=== PATIENT | male | born 2000 | race Caucasian/White ===

== ENCOUNTER 2018-03-03 01:50 | Emergency (ER) | payer OTHER ==
[~2018-03-03] VITALS: Ht 170.2 cm; Wt 131.5 kg
[2018-03-03 01:50] VITALS: BP_SYST 143
[2018-03-03] MEDS ORDERED: PANTOPRAZOLE SODIUM 40 MG TAB PO ONE (02:00)
[2018-03-03] MEDS ORDERED: KETOROLAC TROMETHAMINE 60 MG/2 ML VIAL IM ONE (02:00)
[2018-03-03 02:44] VITALS: BP_SYST 140
== END 2018-03-03 02:44 | disposition home or self-care (01) ==
LOC: SED 01:50
DX: K21.9 Gastro-esophageal reflux disease without esophagitis (principal)
CPT/HCPCS: 71045; 93005; 96372; 99284; J1885

== ENCOUNTER 2018-09-03 03:48 | Inpatient (IN) | payer OTHER ==
[~2018-09-03] VITALS: Ht 170.2 cm; Wt 126.1 kg
[2018-09-03 03:56] VITALS: BP_SYST 143
[2018-09-03] MEDS ORDERED: NITROGLYCERIN 0.4 MG TAB.SUBL SL ONE (04:45)
[2018-09-03] MEDS ORDERED: ONDANSETRON HCL 4 MG/2 ML VIAL IVP ONE (04:45)
[2018-09-03] MEDS ORDERED: ASPIRIN 81 MG TAB.CHEW PO ONE (04:45)
[2018-09-03 05:34] LABS: BASOPHILS # (AUTO) 0.2 K/uL (0.0-0.2); BASOPHILS % (AUTO) 2.3 % (0.0-2.0); EOSINOPHILS # (AUTO) 0.1 K/uL (0.0-0.4); EOSINOPHILS % (AUTO) 1.6 % (0.0-4.0); HEMATOCRIT 49.1 % (36-54); HEMOGLOBIN 15.9 g/dL (14.0-18.0); LYMPHOCYTES # (AUTO) 2.6 K/uL (1.0-5.5); LYMPHOCYTES % (AUTO) 32.5 % (20.5-51.5); MEAN CORPUSCULAR HEMOGLOBIN 29 pg (27-31); MEAN CORPUSCULAR HGB CONC 32 % (32-36); MEAN CORPUSCULAR VOLUME 90 fL (79.0-98.0); MONOCYTES # (AUTO) 0.6 K/uL (0.0-1.0); MONOCYTES % (AUTO) 7.2 % (1.7-9.3); NEUTROPHILS # (AUTO) 4.6 K/uL (1.8-7.7); NEUTROPHILS % (AUTO) 56.4 % (40.0-70.0); PLATELET COUNT (AUTO) 225 K/uL (130-430); RED BLOOD CELL COUNT(AUTO) 5.47 MIL/uL (4.2-6.2); RED CELL DISTRIBUTION WIDTH 13.4 % (9.0-15.0); WHITE BLOOD COUNT (AUTO) 8.1 K/uL (4.5-11.0)
[2018-09-03 05:43] LABS: ANION GAP 11 (5-15); CALCIUM 9.4 mg/dL (8.4-11.0); CHLORIDE 102 mmol/L (98-107); CREATININE 0.81 mg/dL (0.55-1.30); GLUCOSE 112 mg/dL (70-99); POTASSIUM 3.2 mmol/L (3.5-5.1); SODIUM SERUM 140 mmol/L (136-145); UREA NITROGEN, BLOOD 9 mg/dL (8-21)
[2018-09-03 05:44] LABS: GFR AFRICAN AMERICAN 156 mL/min (>90)
[2018-09-03 05:52] LABS: ALANINE AMINOTRANSFERASE 29 U/L (12-78); ASPARTATE AMINOTRANSFERASE 17 U/L (10-37); TOTAL BILIRUBIN 0.4 mg/dL (0.0-1.0)
[2018-09-03 06:18] VITALS: BP_SYST 144
[2018-09-03 07:10] LABS: BILIRUBIN,URINE NEGATIVE (NEGATIVE); BLOOD, URINE NEGATIVE (NEGATIVE); CLARITY/URINE CLEAR (CLEAR); COLOR,URINE YELLOW (YELLOW); GLUCOSE,URINE NEGATIVE (NEGATIVE); KETONES,URINE NEGATIVE (NEGATIVE); LEUKOCYTE ESTERASE ,URINE TRACE (NEGATIVE); NITRITE, URINE NEGATIVE (NEGATIVE); PH,URINE 6.5 (5.0-8.0); PROTEIN URINE NEGATIVE (NEGATIVE); UROBILINOGEN,URINE 0.2 (0.2-1.0)
[2018-09-03 07:34] LABS: BARBITURATE, URINE NEGATIVE (NEG <=200); BENZODIAZEPINE, URINE NEGATIVE (NEG <=150); CANNABINOID, URINE NEGATIVE (NEG <=50); COCAINE, URINE NEGATIVE (NEG <=150); METHAMPHETAMINES SCREEN,URINE NEGATIVE (NEG <=500); OPIATE, URINE NEGATIVE (NEG <=100); PHENCYCLIDINE SCREEN,URINE NEGATIVE (NEG <=25); UR TRICYCLIC ANTIDEPRESSANTS NEGATIVE (NEG <=300); URINE AMPHETAMINE NEGATIVE (NEG <=500); URINE METHADONE NEGATIVE (NEG <=200); URINE OXYCODONE SCREEN NEGATIVE (NEG <=100); URINE PROPOXYPHENE SCREEN NEGATIVE (NEG <=300)
[2018-09-03 07:43] LABS: CHOLESTEROL 145 mg/dL (<200); HDL CHOLESTEROL 36 mg/dL (>45); LDL CHOLESTEROL 104 mg/dL (<100); TRIGLYCERIDES 108 mg/dL (30-150)
[2018-09-03 08:00] VITALS: BP_SYST 122
[2018-09-03] MEDS: FAMOTIDINE 20 MG TABLET PO SCH ×2 (08:05→20:49)
[2018-09-03 11:12] VITALS: BP_SYST 138
[2018-09-03] MEDS ORDERED: KETOROLAC TROMETHAMINE 15 MG VIAL IVP ONE (14:30)
[2018-09-03 15:36] VITALS: BP_SYST 148
[2018-09-03 20:03] VITALS: BP_SYST 135
[2018-09-03] MEDS ORDERED: FAMO-132 PO (21:20)
[2018-09-03] MEDS ORDERED: NAPR-688 PO (21:21)
== END 2018-09-03 22:20 | disposition home or self-care (01) | DRG 313 ==
LOC: SED 03:48 → STU 05:53
PROVIDERS: ADMIT Internal Medicine Hospice and Palliative Medicine; ATTEND Internal Medicine Hospice and Palliative Medicine
DX: R07.89 Other chest pain (principal)
CPT/HCPCS: 36415; 71045; 80053; 80061; 80307; 81003; 82550-TC; 82962; 83874; 84484; 85025; 93005; 96374; 99285; J1885; J2405

== ENCOUNTER 2019-07-12 17:09 | Emergency (ER) | payer OTHER ==
[~2019-07-12] VITALS: Ht 172.7 cm; Wt 127.0 kg
[~2019-07-12 17:09] MED LIST: FAMO-132 PO; NAPR-688 PO
[2019-07-12 17:10] VITALS: BP_SYST 161
--- NOTE | 2019-07-12 17:12 | NUR ---
Placed in room 1 . Placed on cardiac nurse specialist, blood pressure machine and pulse oximeter. To gown for exam. Side rails up. Report received from Jacey MOODY.
--- NOTE | 2019-07-12 17:20 | NUR ---
Pt reports have sharp CP. Pt does report a hx of anxiety. Pt is not in any distress and does not report any SOB. EKG done. Will continue to monitor.
[2019-07-12] MEDS ORDERED: ONDANSETRON 4 MG ODT TAB PO ONE (17:30)
--- NOTE | 2019-07-12 17:38 | NUR ---
pt is having labs drawn at the bedside.
[2019-07-12 17:50] LABS: BASOPHILS # (AUTO) 0.1 K/uL (0.0-0.2); BASOPHILS % (AUTO) 0.7 % (0.0-2.0); EOSINOPHILS % (AUTO) 0.3 % (0.0-4.0); HEMATOCRIT 48.2 % (36-54); HEMOGLOBIN 16.1 g/dL (14.0-18.0); LYMPHOCYTES # (AUTO) 1.5 K/uL (1.0-5.5); MEAN CORPUSCULAR HEMOGLOBIN 30 pg (27-31); MEAN CORPUSCULAR HGB CONC 34 % (32-36); MEAN CORPUSCULAR VOLUME 91 fL (79.0-98.0); MONOCYTES # (AUTO) 0.8 K/uL (0.0-1.0); MONOCYTES % (AUTO) 9.1 % (1.7-9.3); NEUTROPHILS # (AUTO) 6.7 K/uL (1.8-7.7); NEUTROPHILS % (AUTO) 73.9 % (40.0-70.0); PLATELET COUNT (AUTO) 215 K/uL (130-430); RED BLOOD CELL COUNT(AUTO) 5.31 MIL/uL (4.2-6.2); RED CELL DISTRIBUTION WIDTH 13.9 % (9.0-15.0); WHITE BLOOD COUNT (AUTO) 9.1 K/uL (4.8-10.8)
--- NOTE | 2019-07-12 17:50 | NUR ---
pt is having an US done at the bedside.
[2019-07-12 17:53] LABS: CALCIUM 8.6 mg/dL (8.4-11.0); CREATININE 0.81 mg/dL (0.55-1.30); POTASSIUM 3.4 mmol/L (3.5-5.1)
[2019-07-12 17:57] LABS: ALBUMIN 3.6 g/dL (3.4-4.8); TOTAL BILIRUBIN 0.5 mg/dL (0.0-1.0)
--- NOTE | 2019-07-12 18:10 | NUR ---
pt medicated with Zofran per MD order.
--- NOTE | 2019-07-12 18:25 | NUR ---
pt reports feeling better.
--- NOTE | 2019-07-12 18:34 | NUR ---
Patient given written and verbal discharge instructions and verbalizes understanding. ER MD discussed with patient the results and treatment provided. Patient in stable condition. ID arm band removed. Rx of Zofran 4mg and Motrin 800mg given. Patient educated on pain management and to follow up with PMD. Pain Scale 3/10.Opportunity for questions provided and answered. Medication side effect fact sheet provided.
[2019-07-12 18:36] VITALS: BP_SYST 161
== END 2019-07-12 18:36 | disposition home or self-care (01) ==
LOC: SED 17:09
DX: T62.8X1A Toxic effect of other specified noxious substances eaten as food, accidental (unintentional), initial encounter (principal); Z88.8 Allergy status to other drugs, medicaments and biological substances; Y92.89 Other specified places as the place of occurrence of the external cause
CPT/HCPCS: 36415; 76700; 80053; 81002; 82150; 83605; 83690; 84484; 85025; 93005; 99284; Q0162